=== PATIENT | male | born 1985 | race Caucasian/White ===

== ENCOUNTER 2016-10-21 05:53 | Emergency (ER) | payer BC, OTHER ==
[~2016-10-21] VITALS: Ht 177.8 cm; Wt 90.9 kg
[~2016-10-21 05:53] MED LIST: [UNRECOGNIZED DRUG - CODE] PO
--- OUTSIDE RECORDS SUMMARY | 2016-10-21 05:58 | XMS REPORT | Referral Summary ---
Author Organization Unknown Address Unknown Phone Unavailable Care Team Providers Care Kiln Firer Helper Name Role Phone Jazzy Rose Primary Care Physician [phone] Encounter VC Date(s): 11/12/14 - 11/12/14 [facility], Enrique, Family Medicine [address] [place] [address] [place] [id number] Discharge Diagnosis: Cough Discharge Diagnosis: Chronic sinusitis Discharge Disposition: Home or Self Care Attending Physician: Pranay Rose MD Admitting Physician: Pranay Rose MD Vital Signs Most recent to 1 oldest [Reference Range]: Blood Pressure 140/70 mmHg [90-140/60-90 mmHg] (11/12/14 3:23 PM) Problem List Condition Effective Dates Status Health Status Informant Chronic Active sinusitis(Confirmed) Allergies, Adverse Reactions, Alerts No Known Allergies Medications amoxicillin 500 mg oral tablet 1 tabs, Oral, TID, X 10 days, # 30 tabs, 0 Refill(s), Pharmacy: [id number], 1 tabs Oral TID,x10 days Start Date: 11/07/14 Stop Date: 11/17/14 Status: Ordered Claritin 10 mg oral tablet 1 tabs, Oral, Daily, X 30 days, # 30 tabs, 0 Refill(s), Pharmacy: [id number], 1 tabs Oral Daily,x30 days Start Date: 11/07/14 Stop Date: 12/07/14 Status: Ordered predniSONE 20 mg oral tablet 1 tabs, Oral, Daily, X 10 days, # 10 tabs, 0 Refill(s), Pharmacy: [id number], 1 tabs Oral Daily,x10 days Start Date: 11/07/14 Stop Date: 11/17/14 Status: Ordered Results No data available for this section Immunizations No data available for this section Procedures No data available for this section Social History Social History Type Response Smoking Status Never smoker Assessment and Plan Extracted from: Title: Ambulatory Patient Education Author: Pranay Rose MD Date: Allergy Sinusitis Sinusitis is redness, soreness, and swelling (inflammation ) of the paranasal sinuses. Paranasal sinuses are air pockets within the bones of your face ( beneath the eyes, the middle of the forehead, or above the eyes). In healthy paranasal sinuses, mucus is able to drain out, and air is able to circulate through them by way of your nose. However, when your paranasal sinuses are inflamed, mucus and air can become trapped. This can allow bacteria and other germs to grow and cause infection. Sinusitis can develop quickly and last only a short time (acute ) or continue over a long period (chronic ). Sinusitis that lasts for more than 12 weeks is considered chronic. CAUSES Causes of sinusitis include: Allergies. Structural abnormalities, such as displacement of the cartilage that separates your nostrils (deviated septum ), which can decrease the air flow through your nose and sinuses and affect sinus drainage. Functional abnormalities, such as when the small hairs (cilia ) that line your sinuses and help remove mucus do not work properly or are not present. SYMPTOMS Symptoms of acute and chronic sinusitis are the same. The primary symptoms are pain and pressure around the affected sinuses. Other symptoms include: Upper toothache. Earache. Headache. Bad breath. Decreased sense of smell and taste. A cough, which worsens when you are lying flat. Fatigue. Fever. Thick drainage from your nose, which often is green and may contain pus ( purulent ). Swelling and warmth over the affected sinuses. DIAGNOSIS Your caregiver will perform a physical exam. During the exam, your caregiver may : Look in your nose for signs of abnormal growths in your nostrils (nasal polyps) . Tap over the affected sinus to check for signs of infection. View the inside of your sinuses (endoscopy ) with a special imaging device with a light attached (endoscope ), which is inserted into your sinuses. If your caregiver suspects that you have chronic sinusitis, one or more of the following tests may be recommended: Allergy tests. Nasal cultureA sample of mucus is taken from your nose and sent to a lab and screened for bacteria. Nasal cytologyA sample of mucus is taken from your nose and examined by your caregiver to determine if your sinusitis is related to an allergy. TREATMENT Most cases of acute sinusitis are related to a viral infection and will resolve on their own within 10 days. Sometimes medicines are prescribed to help relieve symptoms (pain medicine, decongestants, nasal steroid sprays, or saline sprays) . However, for sinusitis related to a bacterial infection, your caregiver will prescribe antibiotic medicines. These are medicines that will help kill the bacteria causing the infection. Rarely, sinusitis is caused by a fungal infection. In theses cases, your caregiver will prescribe antifungal medicine. For some cases of chronic sinusitis, surgery is needed. Generally, these are cases in which sinusitis recurs more than 3 times per year, despite other treatments. HOME CARE INSTRUCTIONS Drink plenty of water. Water helps thin the mucus so your sinuses can drain more easily. Use a humidifier. Inhale steam 3 to 4 times a day (for example, sit in the bathroom with the shower running). Apply a warm, moist washcloth to your face 3 to 4 times a day, or as directed by your caregiver. Use saline nasal sprays to help moisten and clean your sinuses. Take [id number] or prescription medicines for pain, discomfort, or fever only as directed by your caregiver. SEEK IMMEDIATE MEDICAL CARE IF: You have increasing pain or severe headaches. You have nausea, vomiting, or drowsiness. You have swelling around your face. You have vision problems. You have a stiff neck. You have difficulty breathing. MAKE SURE YOU: Understand these instructions. Will watch your condition. Will get help right away if you are not doing well or get worse. Document Released: 07/18/2006 Document Revised: 10/09/2012 Document Reviewed: [facility] Patient Information 2014 [employer] [facility]. No follow up information was provided. Extracted from: Title: Office Visit Note Author: Pranay Rose MD Date: 11/12/14 Assessment/Plan Chronic sinusitis Zpack at his request.Refused allergy or ENT consult. Prednisone discussed and declined. Work note given. Cough Breo mdi onepuff daily. Samples given and demo provided.CXR and lab discussed and declined. Addendum Call report in 7 days if not resolved and he needs to strongly consider lab/xray and by consult/referral. Pranay Rose MD on 12 November 2014 15:53:10 CDT
--- OUTSIDE RECORDS SUMMARY | 2016-10-21 05:58 | XMS REPORT | Continuity of Care Document ---
Author Author [facility] Organization [facility] Address Unknown Phone Unavailable Allergies Active Description Code Type Severity Reaction Onset Reported/Identified Relationship to Patient Clinical Status Yes No Known Allergies NKMA N/A N/A 11/07/2014 Medications Problems Procedures Results Encounters ACCT No. Visit Date/Time Discharge Status Pt. Type Provider Facility Loc./Unit Complaint [id number] 09/21/2016 13:47:00 2016 23:59:00 DIS Outpatient Dina Walden Via [facility] TCPA Check some things pt not forthright. [id number] 02/14/2015 15:02:00 2014 23:59:00 DIS Outpatient Dina Walden Via [facility] ST
--- OUTSIDE RECORDS SUMMARY | 2016-10-21 05:58 | XMS REPORT | Referral Summary ---
Author Author [facility], [facility] Medicine Organization [facility] Address Unknown Phone Unavailable Care Team Providers Care Adaptive Physical Educator Name Role Phone No PCP, States Primary Care Physician [phone] Encounter VC Date(s): 02/14/15 - 02/14/15 [facility] [address] [place] [address] Discharge Diagnosis: Sinusitis Discharge Diagnosis: Upper respiratory infection Discharge Disposition: 01-Home or Self Care Attending Physician: Dina Walden APRN Admitting Physician: Dina Walden APRN Vital Signs Most recent to 1 oldest [Reference Range]: Temperature Tympanic 37.2 degC [36.6-38.1 degC] (02/14/15 3:35 PM) Peripheral Pulse 81 bpm Rate [60-100 bpm] (02/14/15 3:35 PM) Blood Pressure 146/84 mmHg [90-140/60-90 mmHg] *HI* (02/14/15 3:35 PM) SpO2 98 % (02/14/15 3:35 PM) Problem List Condition Effective Dates Status Health Status Informant Anabolic steroid Active abuse, 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) Bipolar mood Active disorder cannot be ruled out at this time due to substance abuse(Confirmed) Chronic Active sinusitis(Confirmed) 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) Acute Active psychosis(Confirmed) Allergies, Adverse Reactions, Alerts No Known Allergies Medications divalproex sodium 250 mg oral delayed release tablet 750 mg 3 tabs, Oral, BID, # 180 tabs, 0 Refill(s), Indication: Bipolar Start Date: 05/22/15 Status: Ordered Haldol Decanoate 100 mg/mL intramuscular solution 100 mg 1 mL, IntraMuscular, qMonth, Next dose on 06/21/2015, # 1 mL, 0 Refill(s) , Indication: Psychosis Start Date: 05/22/15 Status: Ordered Results No data available for this section Immunizations No data available for this section Procedures Procedure Date Related Diagnosis Body Site None Social History Social History Type Response Smoking Status Never smoker Assessment and Plan No data available for this section
[2016-10-21 06:00] VITALS: BP 142/80; PULSE 62; RESP 18; TEMP 98.2; O2SAT 97; Ht 177.8 cm; Wt 90.9 kg
--- OUTSIDE RECORDS SUMMARY | 2016-10-21 06:16 | XMS REPORT | Continuity of Care Document ---
Author Author [facility] Organization [facility] Address Unknown Phone Unavailable Allergies Active Description Code Type Severity Reaction Onset Reported/Identified Relationship to Patient Clinical Status Yes No Known Allergies NKMA N/A N/A 11/07/2014 Medications Problems Procedures Results Encounters ACCT No. Visit Date/Time Discharge Status Pt. Type Provider Facility Loc./Unit Complaint [id number] 09/21/2016 13:47:00 2016 23:59:00 DIS Outpatient Dina Walden Via [facility] TCPA Check some things pt not forthright. [id number] 02/14/2015 15:02:00 2014 23:59:00 DIS Outpatient Dina Walden Via [facility] ST
[2016-10-21] MEDS ORDERED: NO KNOWN MEDS (06:22)
--- NOTE | 2016-10-21 06:38 | NUR ---
CT PT. AMBULATORY TO CT.
--- NOTE | 2016-10-21 06:50 | ERPDOC ---
Departure Disposition Decision Date: Oct 21, 2016 Disposition Decision Time: 07:06 Disposition: 01 DISCHARGED HOME, SELF-CARE Impression Impression Impression: Primary Impression: Closed head injury Encounter type: initial encounter Qualified Codes: S09.90XA - Unspecified injury of head, initial encounter Severity: Mild Condition: Improved Seen By: Physician only Referrals: TERESE HERR II, MD (Family) 2 Days Patient Instructions: General Headache (ED) Problems/Meds/Labs Reviewed?: Yes Medications reviewed and manag: Yes Follow up care ordered?: Yes Mental Status: Alert, Oriented HPI - General Medical General Chief Complaint: Headache Stated Complaint: FELL AND HIT HIS HEAD Time Seen by Provider: 06:08 Source: patient Exam Limitations: no limitations HPI - General Medical Initial Comments 31-year-old male presents to the emergency department with a chief complaint of wishing to have his head evaluated after falling and striking his head during the recent past at work. Patient currently denies any pain or discomfort. Patient denies loss of consciousness, neck pain, or headache currently. Patient states that he presents in order to have his head evaluated as he has become concerned that he might have an internal injury. Patient is only willing to say that he "fell within the past few days." Patient states that he tripped and fell while at work. Patient denies any other complaints or associated symptoms. No exacerbating or remitting factors. Patient is currently asymptomatic. He is not anticoagulated. Allergies: Coded Allergies: NKDA (Unverified Adverse Reaction, Unknown, 10/21/16) Past History Past Medical History Pt denies signifigant PMH Surgical History Denies Surgeries Family History Family PMH: FOUND: [place], cancer, diabetes, hypertension Vaccines Hx Influenza Vaccination: No Hx Pneumococcal Vaccination: No Hx Tetanus, Diptheria, Pertuss: Yes (AGE 15) Social History Smoking Status: Current some day smoker Substance Use Type: does not use Alcohol Intake: none Review of Systems Constitutional Constitutional: DENIES: chills, fever Eyes General: DENIES: erythema, exudate Lids/Accessories: DENIES: erythema, swelling Vision: DENIES: acuity, blurring ENMT Ears: DENIES: drainage, pain Hearing: DENIES: hearing loss Balance: DENIES: ataxia, falling to one side Sinuses: DENIES: congestion, pain Nose: DENIES: nosebleeds, pain Mouth/Throat: DENIES: painful swallowing, sore throat Teeth: DENIES: pain Jaw: DENIES: pain Cardiovascular Cardiac: DENIES: chest pain, dyspnea on exertion Rhythm/Rate: DENIES: irregular beat, palpitations Vascular: DENIES: pedal edema, unilateral swelling Pulmonary Respiratory: DENIES: cough, dyspnea, pleuritic chest pain, sputum GI Upper Abdomen: DENIES: nausea, pain, vomiting Lower Abdomen: DENIES: diarrhea, pain General: DENIES: dysuria, pain Musculoskeletal General: DENIES: joint pain, pain, tenderness Integumentary Skin: DENIES: itching, rash Neurological General: DENIES: change in strength, headache, numbness, seizures, syncope, weakness Psychiatric Psychiatric: DENIES: emotional instability, suicidal ideation/attempt Endocrine Endocrine: DENIES: polydipsia, polyphagia Hematologic/Lymphatic Hematologic/Lymphatic: DENIES: frequent nosebleeds, lymphadenopathy Allergic/Immunological Allergic/Immunoligical: DENIES: frequent infections, hives Physical Exam General General Nourishment: well nourished, well developed, appears stated age, no acute distress General Body Habitus: well groomed Vitals and Pain First Documented Vital Signs Date Time Temp Pulse Resp B/P Pulse Ox O2 Delivery O2 Flow Rate FiO2 10/21/16 06:00 98.2 62 18 142/80 97 Room Air Weight: Kilograms: 90.900 Height (feet): 5 Height (inches): 10.00 Triage Pain Scale: RN VS reviewed by Provider: Yes Normal Exams: Head: Normocephalic w/o trauma Eyes: Pupils are PERRLA w/ EOMI, No scleral icterus, irritation, or foreign bodies noted ENMT: No facial trauma, nasal exudates, pharyngeal erythema, or exudates are noted Dental: No fractured, loose, or missing teeth noted Neck: Full range of motion, without adenopathy, JVD, bruits or thyromegaly Chest/Resp: Clear all ha, with good airflow, and symmetry bilaterally CV: Regular rate and rhythm, without murmur or gallop, Pulses 2+ all extremities, capillary refill, <2 seconds all ext., no pedal edema noted Abdomen: Bowel sounds positive, soft, non-tender, non-distended, no hepatosplenomegaly, masses or bruits noted Lymphatic: No lymphadenopathy, or lymphedema noted Musculoskeletal: No tenderness, or deformity noted, good range of motion, all extremities Integumentary: No rashes, hives, or bruising noted, hair and nails, without abnormality Neurologic: Patient is alert, and oriented, cranial nerves, motor/sensory/ cerebellar, exams w/o gross deficits, to observation Psychiatric: Patient exhibits, appropriate attention, emotion and affect Musculoskeletal (brief) Comments No mid-line tenderness or deformity of the cervical/thoracic/lumbar spine. Neurologic (brief) Comments Alert and oriented x 4. CN 2-12 intact. sensation intact. strength normal. normal motor. normal coordination. Normal gait. Reflexes 2/4 in all extremities. Absent Babinski bilaterally. No focal neurologic deficit. Differential Diagnoses Considering: Other (Closed head injury, mechanical fall, fracture, strain) Progress Results/Orders Orders Procedure Category Date Status Time Ct Head W/O Contrast CT 10/21/16 Logged 06:20 Ct Cervical Spine W/O CT 10/21/16 Logged Contrast 06:20 Progress Progress Patient denies homicidal/suicidal ideation or plan. Patient denies any self injury or self-harm. Patient's imaging is discussed in detail with the patient and questions are answered. Patient is in agreement with the current plan of management. Patient is discharged home in improved condition. Patient does not have any tenderness or deformity to palpation of the midline of the cervical spine. There is no tenderness in the neck to palpation. Patient is to follow up as instructed. Patient is to return to the emergency department if his condition worsens or changes in any manner. Patient is in agreement with the current plan of management. CT CT : CT: Head no contrast Interpretation: Normal, Faxed Report (CT Cervical Spine: Negative. ) YU ACEVEDO DO Oct 21, 2016 06:50
--- NOTE | 2016-10-21 07:15 | NUR ---
DISMISSAL NOTE DISMISSAL INSTRUCTIONS GIVEN TO PT. PT. STATES HE DIDN'T GET TO SEE HIS CT SCAN. ASKED HIM IF DOCTOR HAD BEEN IN TO TALK ABOUT HIS RESULTS. HE SAID HE TOLD THEM THEY WERE OKAY BUT HE DID NOT SEE THEM. TOLD HIM I WOULD ASK THE DOCTOR IF HE COULD BRING THEM UP FOR HIM. HE THEN SAID THAT WAS OK. THEN HE ASKED ME IF HE SHOULD SLEEP. I INFORMED HIM EVERYONE SHOULD SLEEP AND I WASN'T SURE WHAT HE WAS ASKING. THEN HE INFORMED ME HE WAKES UP EVERY DAY AT 0300. INFORMED HIM HE SHOULD SEE HIS REGULAR DOCTOR TO FIND SOLUTIONS FOR SOME OF THESE PROBLEMS THAT WE JUST RULE OUT LIFE THREATENING PROBLEMS. PT. LEFT ED AMBULATORY BY SELF.
--- NOTE | 2016-10-21 08:07 | DI ---
Indication: ITS.REASON: Neck pain PROCEDURE: CT CERVICAL SPINE W/O CONTRAST: Encounter: Initial Comparison: None Technique: Axial CT images through the cervical spine were performed without contrast. Coronal and sagittal reformatted images were also obtained. Automated Exposure Control and Iterative Reconstruction dose reducing techniques were utilized. FINDINGS: The alignment of the cervical spine is abnormal with reversal of the normal cervical lordosis which could be due to positioning or muscular spasm/strain. There is no evidence of acute fracture or subluxation of the cervical spine. The facet joints are well aligned with preservation of the intervertebral disk and facet joints. The atlantoaxial articulation, dens, and upper cervical spine demonstrate no subluxation. There is no evidence of significant spinal stenosis, foraminal compromise, or significant disk herniation. The paraspinal soft tissues and spinal canal appear unremarkable. IMPRESSION: No acute traumatic abnormality of the cervical spine. There is a preliminary report by [facility]. .
--- NOTE | 2016-10-21 08:07 | DI ---
Indication: ITS.REASON: Right-sided head pain, injury PROCEDURE: CT HEAD W/O CONTRAST: Encounter: Initial Comparison: None Technique: Axial CT images through the head were performed without contrast. Iterative Reconstruction dose reducing technique was utilized. FINDINGS: The ventricles are of normal size, shape, and configuration for the patient's age. There is no evidence of acute intracranial hemorrhage, midline displacement, or mass effect. The CT attenuation of the brain parenchyma is normal within the cerebellum, brain stem, and cerebral hemispheres. The tympanic cavities and mastoid air cells are free of appreciable disease. There are no definite fractures of the skull base, calvarium, or visualized portion of the midface. IMPRESSION: No CT evidence of acute traumatic intracranial injury. There is a preliminary report by [employer]. .
== END 2016-10-21 07:15 | disposition home or self-care (01) ==
LOC: ED 05:53
DX: S09.90XA Unspecified injury of head, initial encounter (principal); W01.0XXA Fall on same level from slipping, tripping and stumbling without subsequent striking against object, initial encounter; Y93.9 Activity, unspecified; Y92.9 Unspecified place or not applicable; Y99.0 Civilian activity done for income or pay

== ENCOUNTER → 2016-11-23 | Outpatient (CLI) | payer OTHER ==
[~2016-11-23] MED LIST changes: +NO KNOWN MEDS; -[UNRECOGNIZED DRUG - CODE] PO
--- NOTE | 2016-11-23 15:38 | DI ---
Indication: ITS.REASON: M25.512 PAIN IN LEFT SHOULDER PROCEDURE: SHOULDER LEFT 3 VIEWS: Encounter: Initial Comparison: June 01, 2010 Findings: There is no acute fracture, dislocation or malalignment identified. Joint spaces are normal. Impression: No acute osseous abnormality. .
== END ==
LOC: IMA 15:05
PROVIDERS: ATTEND Family Medicine
DX: M25.512 Pain in left shoulder (principal)